=== PATIENT | female | born 1990 | race Caucasian/White ===

== ENCOUNTER 2021-06-11 07:40 | Outpatient (REF) | payer OTHER, SELFPAY ==
[2021-06-11 08:29] LABS: MANUAL DIFF FLAG NO
[2021-06-11 08:35] LABS: Basophils Absolute Auto 0.1 X10*3/uL (0.0-0.2); Basophils Percent Auto 1.1 % (0-2); Eosinophils Absolute Auto 0.6 X10*3/uL (0.0-0.4); Eosinophils Percent Auto 10.8 % (0-4); Hematocrit 43.7 % (37-47); Hemoglobin 14.4 g/dl (12.0-16.0); Imm Gran Abs Auto 0.01 X10*3/uL (0.00-0.03); Imm Gran Pct Auto 0.2 % (0.0-0.4); Lymphocytes Absolute Auto 2.1 X10*3/uL (1.2-4.9); Lymphocytes Percent Auto 38.8 % (20-40); Mean Corpuscular Hemoglobin 30.1 pg (27.0-33.0); Mean Corpuscular Volume 91.2 fL (80-98); Monocytes Absolute Auto 0.4 X10*3/uL (0.1-1.2); Monocytes Percent Auto 7.9 % (2-11); Neutrophils Absolute Auto 2.2 X10*3/uL (2.0-8.3); Neutrophils Percent Auto 41.2 % (45-73); Platelet Count 228 X10*3/uL (160-400); Red Blood Count 4.79 X10*6/uL (4.20-5.50); Red Cell Distribution Width 12.8 % (11.0-16.0); White Blood Count 5.4 X10*3/uL (4.8-10.8)
[2021-06-11 08:53] LABS: Alanine Aminotransferase 19 U/L (0-31); Albumin Level 4.8 g/dL (3.5-5.0); Alkaline Phosphatase 53 U/L (39-117); Anion Gap 13 (12-20); Aspartate Amino Transferase 18 U/L (5-31); Bilirubin Total 0.8 mg/dL (0.0-1.0); Blood Urea Nitrogen 13 mg/dL (9-16); Calcium 9.5 mg/dL (8.4-10.2); Carbon Dioxide 26 mmol/L (22-29); Chloride 106 mmol/L (96-108); Cholesterol 182 mg/dL; Estimated Glomerular Filt Rate > 60; Glucose Fasting 95 mg/dL (60-99); HDL Cholesterol 63 mg/dL; LDL Cholesterol Calculated 110 mg/dl; Potassium 4.5 mmol/L (3.3-5.1); Sodium 140 mmol/L (135-145); Total Protein 7.6 g/dL (6.5-8.0); Triglycerides 46 mg/dL
[2021-06-11 09:06] LABS: Glucose Urine UA NEG (NEG); Leukocyte Esterase Urine NEG (NEG); Nitrite Urine NEG (NEG); Specific Gravity - Urine 1.015 (1.005-1.025); Urine Blood NEG (NEG); Urine Ketones NEG (NEG); Urine Protein NEG (NEG-TRACE)
[2021-06-11 09:08] LABS: Appearance Urine CLEAR; Color Urine YELLOW
[2021-06-11 09:19] LABS: TSH reflex Free T4 0.81 uIU/mL (0.32-4.0)
== END 2021-06-11 07:41 | disposition home or self-care (01) ==
LOC: HO.LAB 07:40
PROVIDERS: PCP Internal Medicine; Visit Provider Internal Medicine
DX: Z00.00 Encounter for general adult medical examination without abnormal findings (principal); I10 Essential (primary) hypertension
CPT/HCPCS: 36415; 80053; 80061; 81003; 84443; 85025

== ENCOUNTER 2023-03-17 08:32 | Outpatient (REF) | payer OTHER, SELFPAY ==
[2023-03-17 08:46] LABS: MANUAL DIFF FLAG NO
[2023-03-17 09:23] LABS: Basophils Absolute Auto 0.1 X10*3/uL (0.0-0.2); Basophils Percent Auto 0.8 % (0-2); Eosinophils Absolute Auto 0.5 X10*3/uL (0.0-0.4); Eosinophils Percent Auto 7.4 % (0-4); Hematocrit 40.1 % (37.0-47.0); Hemoglobin 13.4 g/dl (12.0-16.0); Imm Gran Abs Auto 0.02 X10*3/uL (0.00-0.03); Imm Gran Pct Auto 0.3 % (0.0-0.4); Lymphocytes Absolute Auto 1.8 X10*3/uL (1.2-4.9); Mean Corpuscular HGB Conc 33.4 g/dl (31.0-35.0); Mean Corpuscular Hemoglobin 30.5 pg (27.0-33.0); Mean Corpuscular Volume 91.1 fL (80.0-98.0); Monocytes Absolute Auto 0.6 X10*3/uL (0.1-1.2); Monocytes Percent Auto 7.6 % (2-11); Neutrophils Absolute Auto 4.3 x10*3/uL (2.0-8.3); Neutrophils Percent Auto 58.9 % (45-73); Platelet Count 218 X10*3/uL (160-400); Red Cell Distribution Width 12.5 % (11.0-16.0); White Blood Count 7.2 X10*3/uL (4.8-10.8)
[2023-03-17 09:52] LABS: Alanine Aminotransferase 35 U/L (0-31); Albumin Level 4.5 g/dL (3.5-5.0); Alkaline Phosphatase 51 U/L (39-117); Anion Gap 11 (12-20); Aspartate Amino Transferase 50 U/L (5-31); Bilirubin Total 1.1 mg/dL (0.0-1.0); Blood Urea Nitrogen 14 mg/dL (9-16); Calcium 9.3 mg/dL (8.4-10.2); Carbon Dioxide 29 mmol/L (22-29); Chloride 102 mmol/L (96-108); Cholesterol 161 mg/dL; Estimated Glomerular Filt Rate > 60; Glucose Fasting 89 mg/dL (60-99); HDL Cholesterol 60 mg/dL; LDL Cholesterol Calculated 92 mg/dl; Potassium 4.4 mmol/L (3.3-5.1); Sodium 138 mmol/L (135-145); Total Protein 7.2 g/dL (6.5-8.0); Triglycerides 46 mg/dL
[2023-03-17 10:08] LABS: TSH reflex Free T4 0.98 uIU/mL (0.32-4.0); Vitamin D 25-OH Total 38.7 ng/mL (>30)
[2023-03-17 10:44] LABS: Appearance Urine Clear; Color Urine Yellow; Glucose Urine UA Negative (Negative); Leukocyte Esterase Urine Negative (Negative); Nitrite Urine Negative (Negative); PH 7.5 (5.0-9.0); Urine Blood Negative (Negative); Urine Ketones Negative (Negative); Urine Protein Negative (Neg-Trace)
== END 2023-03-17 08:33 | disposition home or self-care (01) ==
LOC: HO.LAB 08:32
PROVIDERS: PCP Internal Medicine; Visit Provider Internal Medicine
DX: Z00.00 Encounter for general adult medical examination without abnormal findings (principal); I10 Essential (primary) hypertension; E55.9 Vitamin D deficiency, unspecified; E78.00 Pure hypercholesterolemia, unspecified
CPT/HCPCS: 36415; 80053; 80061; 81003; 82306; 84443; 85025

== ENCOUNTER 2023-05-18 08:43 | Outpatient (AMB) | payer OTHER, SELFPAY ==
[2023-05-18 08:44] VITALS: BP 110/72; PULSE 70; TEMP 36.8; O2SAT 99
--- NOTE | 2023-05-18 08:44 | AM.OFFWIN_ITS ---
Intake Vital Signs 05/18/23 08:44 Height 5 ft 4 in BP 110/72 Blood Pressure Location Rt brachial Position Sitting Pulse 70 Pulse Source Pulse Oximeter Temp 98.3 F Temp Source Oral Pulse Oximetry (%) 99 Oxygen Delivery Method Room Air Intake Visit Reasons: EP, Tic bite left leg (lobby) Intake Note: pt is for a bulls eye rash on her left calf that is red and swollen pt did not find a tick she had orig thought it was a bug bite and this am she noticed the bulls eye Patient Tobacco Use Status: Never used Tobacco Allergies chlorhexidine Adverse Reaction (Intermediate, Verified 05/18/23 08:47) itchy rash HPI EP, Tic bite left leg (lobby) HPI Details 32-year-old patient presents today for a bulls eye rash on her left calf. She felt what she thought to be an insect bite yesterday and overnight, the area became red and warm, with a bulls eye rash surrounding it. She has had ticks on her previously after being out in her yard. She does not see any tick in area at this time. [facility] Medical History Benign essential hypertension History of pre-eclampsia Surgical History History of bunionectomy of both great toes History of wisdom tooth extraction Family History Mother High blood pressure Father High blood pressure Heart disease Mental health disorder Bipolar 1 disorder, depressed Social History Housing: House (rented) Alcohol intake: current Alcohol intake frequency: holidays/special occasions only Patient Tobacco Use Status: Never used Tobacco e-Cigarette/Vaping Use: Never Used Second Hand Smoke Exposure: Yes service: No Current occupational status: employed Current occupation: RN at [employer] Cognitive needs: No Hearing needs: No Vision needs: No Review of Systems Const All systems reviewed & are unremarkable except as noted in HPI and below Physical Exam Vital Signs: Last Vital Signs Temp 98.3 F 05/18/23 08:44 Pulse 70 05/18/23 08:44 BP 110/72 05/18/23 08:44 Pulse Ox 99 05/18/23 08:44 Oxygen Delivery Method Room Air 05/18/23 08:44 Const General: cooperative, healthy appearing, comfortable and no acute distress Resp Effort & Inspection: normal respiratory effort and able to speak in complete sentences Skin Other: erythematous, round, warm, indurated area - approx 3cm, on post. left calf. Bullseye rash surrounding site. Extrem General: Yes no clubbing, cyanosis or edema Psych Appearance: grossly normal Mental Status: mental status grossly normal Speech and movement: Normal speech and movement present Assessment & Plan Assessment & Plan (1) Insect bite of left lower leg: Code(s): S80.862A - Insect bite (nonvenomous), left lower leg, initial encounter; W57.XXXA - Bitten or stung by nonvenomous insect and other nonvenomous arthropods, initial encounter Qualifiers: Encounter type: initial encounter Qualified Code(s): S80.862A - Insect bite (nonvenomous), left lower leg, initial encounter; W57.XXXA - Bitten or stung by nonvenomous insect and other nonvenomous arthropods, initial encounter Plan: Patient with symptoms consistent with tick bite, with development of bulls eye rash overnight. Patient requesting proph abx. Denies chance of . Will prescribe Doxy 200mg as a once time dose. I will also order Lyme labs for 6 weeks from now. Advised patient to apply cool compress and topical antihistamine to bite site. If this rash worsens, or if she develops any additional symptoms she should return to the clinic for further evaluation. Orders: Orders Lyme IgG/IgM w/reflex to WB 06/29/23 S80.862A - Insect bite (nonvenomous), left lower leg, initial encounter, W57.XXXA - Bitten or stung by nonvenomous insect and other nonvenomous arthropods, initial encounter Medications: New doxycycline hyclate 200 mg (2 x 100 mg) PO ONCE 2 tabs 0RF S80.862A - Insect bite (nonvenomous), left lower leg, initial encounter, W57.XXXA - Bitten or stung by nonvenomous insect and other nonvenomous arthropods, initial encounter Coding Level of Care Code Est Pt Level 3 (98585) Diagnoses Insect bite of left lower leg S80.862A; W57.XXXA Encounter type: initial encounter
== END 2023-05-18 09:56 | disposition home or self-care (01) ==
PROVIDERS: PCP Internal Medicine; Visit Provider Nurse Practitioner Family
DX: S80.862A Insect bite (nonvenomous), left lower leg, initial encounter (principal); W57.XXXA Bitten or stung by nonvenomous insect and other nonvenomous arthropods, initial encounter
CPT/HCPCS: 99213

== ENCOUNTER 2023-06-24 13:43 | Outpatient (AMB) | payer OTHER, SELFPAY ==
--- NOTE | 2023-06-24 13:46 | MHC.PC.OV ---
Vital Signs 06/24/23 13:47 Height 5 ft 4 in Weight 137 lb 4 oz BMI 23.6 BP 122/78 Blood Pressure Location Lt brachial Position Sitting Pulse 65 Pulse Source Pulse Oximeter Pulse Oximetry (%) 99 Oxygen Delivery Method Room Air Intake Visit Reasons: Annual Exam Home Health Physical Therapist Required: No Accompanied by: Self / Same As Patient Allergies chlorhexidine Adverse Reaction (Intermediate, Verified 06/26/23 21:47) itchy rash Medication List - Last Reconciled 06/26/23 by Deric Cui MD lisinopril 2.5 mg PO DAILY 90 days metoprolol succinate ER 25 mg PO DAILY 90 days multivitamin (Daily Multi-Vitamin tablet) 1 tab PO DAILY norethindrone (contraceptive) 0.35 mg PO BEDTIME Tobacco use date assessed: 06/24/23 Dental Screening Dental Screen Date: 06/24/23 Did you have a dental visit in the last 12 months?: Yes Did you have a dental problem in the last 6 months where you did not have access to dental care?: No Was dental information given to patient?: Patient has dentist HPI Annual Exam HPI Details Patient comes in today for her annual physical examination States that she feels okay She denies any headaches but reports that she has been experiencing on and off dizziness lately, especially when she bends over and gets up too quickly Denies any chest pains, no shortness of breath No nausea /vomiting, no abdominal pain No change in bowel habits noted Denies any acute urinary symptoms Would like to know how she did on her labs done back in February 2023 [facility] Medical History Benign essential hypertension History of pre-eclampsia Surgical History History of bunionectomy of both great toes History of wisdom tooth extraction Family History Mother High blood pressure Father High blood pressure Heart disease Mental health disorder Bipolar 1 disorder, depressed Social History Housing: House (rented) Alcohol intake: current Alcohol intake frequency: holidays/special occasions only Patient Tobacco Use Status: Never used Tobacco e-Cigarette/Vaping Use: Never Used Second Hand Smoke Exposure: Yes service: No Current occupational status: employed Current occupation: RN at [employer] Cognitive needs: No Hearing needs: No Vision needs: No Questionnaire PHQ-9 Over the last 2 weeks, how often have you been bothered by any of the following problems? 1. Little interest or pleasure in doing things: not at all 2. Feeling down, depressed, or hopeless: not at all 3. Trouble falling or staying asleep, or sleeping too much: not at all 4. Feeling tired or having little energy: not at all 5. Poor appetite or overeating: not at all 6. Feeling bad about yourself - or that you are a failure or have let yourself or your family down: not at all 7. Trouble concentrating on things, such as reading the newspaper or watching television: not at all 8. Moving or speaking so slowly that other people could have noticed. Or the opposite - being so fidgety or restless that you have been moving around a lot more than usual: not at all 9. Thoughts that you would be better off or of hurting yourself in some way: not at all Total score: 0 Depression Screening Interpretation: Negative 34787 - PHQ-9 Billing: Yes Source: Developed by Drs. Edinson Mcclure, Shakira Monroe, Boby Subramanian and colleagues, with an educational frida from [employer]. Thrive Questionnaire Date Thrive assessed: 06/24/23 I am a: Patient What is your living situation today?: I have a steady place to live Within the past 12 months, did the food you bought not last and you didn't have the money to get more?: Never true Within the past 12 months, did you worry whether your food would run out before you got money to buy more?: Never true Do you have trouble paying for medicines?: No Do you have trouble getting transportation to medical appointments?: No Do you have trouble paying your heating and electricity bill?: No Do you have trouble taking care of your child, family member or friend?: No Do you have trouble with day-to-day activities such as bathing, preparing meals, shopping, managing finances, etc.?: No Are you currently unemployed and looking for a job?: No Are you interested in more education?: No Please select the resources that you would like help with: None Currently or been in a relationship where the following occur: no concerns reported AUDIT C Alcohol Use Questionnaire (AUDIT-C) 1. How often do you have a drink containing alcohol?: Monthly or less 2. How many drinks containing alcohol do you have on a typical day when you are drinking?: 1 or 2 3. How often do you have six or more drinks on one occasion?: Never Total Score: 1 Score Reviewed/Action Taken: Yes GWENDOLYN-7 AMB Questionnaire GWENDOLYN-7 Date GWENDOLYN - 7 assessed: 06/24/23 Feeling nervous, anxious, or on edge: 0 = Not at all Not being able to stop or control worryin = Not at all Worrying too much about different things: 0 = Not at all Trouble relaxin = Not at all Being so restless that it is hard to sit still: 0 = Not at all Becoming easily annoyed or irritable: 0 = Not at all Feeling afraid as if something awful might happen: 0 = Not at all Total GWENDOLYN-7 score (0-4 normal; 5-9 mild; 10-14 moderate; 15-21 severe): 0 Source: Developed by Drs. Edinson Mcclure, Shakira Monroe, Boby Subramanian and colleagues, with an educational frida from [employer]. GWENDOLYN-7 Assessment Billing GWENDOLYN-7 Assessment Tool: GWENDOLYN-7 Assessment 13235 Review of Systems Const Denies chills, Denies fatigue, Denies fever(s), Denies headache(s) and Denies malaise Eyes Denies blurry vision, Denies change in vision, Denies irritation and Denies itchy eyes ENT Denies dysphagia, Denies dizziness, Denies otalgia, Denies headache(s), Denies nasal congestion, Denies neck pain, Denies odynophagia, Denies sinus pain and Denies sore throat Card Denies chest pain, Denies rapid heart rate, Denies irregular heart rhythm, Denies palpitations and Denies dyspnea Resp Denies chest congestion, Denies cough, Denies dyspnea and Denies wheezing GI Denies abdominal pain, Denies bloating, Denies constipation, Denies dysphagia, Denies heartburn, Denies diarrhea, Denies nausea, Denies odynophagia and Denies vomiting Denies hematuria, Denies urinary frequency, Denies dysuria, Denies urinary incontinence and Denies urinary urgency Musc Denies back pain, Denies arthralgias, Denies joint swelling, Denies muscle weakness and Denies neck pain Skin/Breast Denies breast pain, Denies breast mass, Denies change in pigmentation, Denies lesions, Denies rash and Denies unusual bruising Neuro Denies dizziness, Denies headache(s) and Denies paresthesias Psych Denies anxiety and Denies depression Endo Denies fatigue and Denies palpitations Nickolas/Lymph Denies easy bruising Aller/Immun Denies itchy eyes and Denies wheezing Physical exam (Primary Care) Vital Signs: Last Vital Signs Pulse 65 06/24/23 13:47 BP 122/78 06/24/23 13:47 Pulse Ox 99 06/24/23 13:47 Oxygen Delivery Method Room Air 06/24/23 13:47 BMI result Body Mass Index 23.6 Tobacco/Smoking Status: Tobacco use Status Tobacco use date assessed 06/24/23 06/24/23 13:53 Patient Tobacco Use Status Never used Tobacco 06/24/23 13:53 e-Cigarette/Vaping Use Never Used 06/24/23 13:53 PHQ-9: PHQ-9 Score PHQ-9: Total score 0 06/26/23 21:57 Depression Screening Interpretation: Negative Thrive Assessment: Date of Thrive Assessment Date Thrive assessed 06/24/23 06/24/23 13:53 Currently or been in a relationship where the following occur: no concerns reported Const General: no acute distress, alert and awake Orientation/consciousness: patient oriented x3 [facility] Head: Yes normocephalic and Yes atraumatic Ears: external ears normal, TM's normal bilaterally and EAC's normal General nose exam: No nasal discharge present Face and sinus: Yes normal facial exam and Yes sinuses nontender Teeth and gingiva: dentition normal Throat: Yes posterior oropharynx normal and Yes tonsils normal (no TP congestion) Eyes Eyelids: Yes eyelids normal Conjunctivae: conjunctivae normal Pupils: Equal, round and reactive pupils present EOM: EOMs intact bilaterally Neck Neck: Yes no lymphadenopathy and Yes supple Thyroid: Thyroid normal Resp Auscultation: clear to auscultation bilaterally, no rales and no wheezes Cardio Rate: regular rate Rhythm: regular rhythm Heart sounds: no murmurs GI Palpation (GI): Soft to palpation, nontender and No hepatosplenomegaly present Auscultation: normal bowel sounds General: Yes no CVA tenderness Back/Spine/Pelvis Back: no CVA tenderness Thoracic/Lumbar Spine: thoracic and lumbar spine normal to inspection Skin Lesions: no lesions Rashes: no rashes Neuro General: patient oriented x3, moves all extremities, no focal motor deficits and CN's II-XI intact bilaterally Cranial nerves: Yes Equal, round and reactive pupils present Cognition (Neuro): normal cognition Gait exam (Neuro): Normal gait present Extrem General: Yes no clubbing, cyanosis or edema Results Reviewed Results Reviewed: Laboratory Tests 03/17/23 03/17/23 03/17/23 08:30 08:45 08:45 WBC 7.2 Hgb 13.4 Hct 40.1 Plt Count 218 Sodium 138 Potassium 4.4 Creatinine 0.79 Estimated GFR > 60 Fasting Glucose 89 Total Bilirubin 1.1 H AST 50 H ALT 35 H Triglycerides 46 Cholesterol 161 LDL Cholesterol, Calc 92 HDL Cholesterol 60 25-OH Vitamin D Total 38.7 TSH 0.98 Ur Specific [place] 1.010 Urine Protein Negative Urine Glucose (UA) Negative Urine Blood Negative Assessment and Plan Assessment & Plan (1) Annual physical exam: Code(s): Z00.00 - Encounter for general adult medical examination without abnormal findings Plan: Results of her labs done in February 2023 reviewed and discussed with patient (2) Benign essential hypertension: Code(s): I10 - Essential (primary) hypertension Plan: Reinforced low sodium diet - goal is systolic BP of 120 to 130 mm or less; patient's BP is currently well-controlled Continue Metoprolol ER 25 mg QD Is also on Lisinopril 5 mg QD but will have her try cutting her Lisinopril in half to 2.5 mg QD for now to see if this will keep her from getting the recurrent dizzy spells that she was experiencing recently She is advised to continue monitoring her blood pressure regularly (3) Elevated LFTs: Code(s): R79.89 - Other specified abnormal findings of blood chemistry Plan: Advised that her LFTs were elevated on her labs done back in February 2023 Patient denies any abdominal pain or symptoms lately States that she drinks only occasionally / rarely and does not take any Tylenol or any other meds that can affect the liver Will send her for a repeat liver panel for follow up Advised that if her LFTs remain elevated, will then send her for abdominal US for further evaluation (4) Eosinophilia: Code(s): D72.10 - Eosinophilia, unspecified Qualifiers: Eosinophilia type: unspecified eosinophilia Qualified Code(s): D72.10 - Eosinophilia, unspecified Plan: She's had an unexplained eosinophilia for a while now and her eosinophil level remains elevated on her recent labs Will refer her to hematology for further evaluation and management (5) Varicose vein of leg: Code(s): I83.90 - Asymptomatic varicose veins of unspecified lower extremity Qualifiers: Laterality: bilateral Varicose vein complication: asymptomatic Qualified Code(s): I83.93 - Asymptomatic varicose veins of bilateral lower extremities Plan: She is now seeing vascular surgery (Dr. Pichardo) in [place] Was reportedly advised at her last visit that as she currently does not appear to have any significant symptoms related to her varicose veins, insurance will often NOT cover cosmetic procedures so surgery would not be an option for her at this time Plan Follow up in 6 months Orders: Orders Liver Panel 06/24/23 R79.89 - Other specified abnormal findings of blood chemistry Referrals Hematology & Oncology Referral D72.10 - Eosinophilia, unspecified Medications: Changed From lisinopril 5 mg PO DAILY 90 days 90 tabs 3RF To lisinopril 2.5 mg PO DAILY 90 days 90 tabs 3RF Coding Level of Care Code Est Pt Prev Care 18-39y([id number]) Diagnoses Annual physical exam Z00.00 Benign essential hypertension I10 Elevated LFTs R79.89 Eosinophilia D72.10 Eosinophilia type: unspecified eosinophilia Varicose vein of leg I83.93 Laterality: bilateral Varicose vein complication: asymptomatic Additional Codes GWENDOLYN-7 Assessment Billing - GWENDOLYN-7 Assessment Tool: GWENDOLYN-7 Assessment [id number] ([id number])
[2023-06-24 13:47] VITALS: BP 122/78; PULSE 65; O2SAT 99; BMI 23.6
== END 2023-06-24 14:34 | disposition home or self-care (01) ==
PROVIDERS: PCP Internal Medicine; Visit Provider Internal Medicine
DX: Z00.00 Encounter for general adult medical examination without abnormal findings (principal); I10 Essential (primary) hypertension; R79.89 Other specified abnormal findings of blood chemistry; D72.10 Eosinophilia, unspecified; I83.93 Asymptomatic varicose veins of bilateral lower extremities
CPT/HCPCS: 99395

== ENCOUNTER 2023-06-30 14:02 | Outpatient (REF) | payer OTHER, SELFPAY ==
[2023-06-30 16:07] LABS: Alanine Aminotransferase 16 U/L (0-31); Albumin Level 4.9 g/dL (3.5-5.0); Alkaline Phosphatase 61 U/L (39-117); Aspartate Amino Transferase 21 U/L (5-31); Bilirubin Direct 0.3 mg/dL (0.0-0.5); Bilirubin Total 0.7 mg/dL (0.0-1.0); Total Protein 8.3 g/dL (6.5-8.0)
[2023-07-02 05:19] LABS: Lyme Blot 7.97 index
[2023-07-04 11:30] LABS: Lyme Abs Screen POSITIVE
[2023-07-06 14:18] LABS: 18 KD (IgG) Band NON-REACTIVE; 23 KD (IgG) Band REACTIVE; 23 KD (IgM) Band REACTIVE; 28 KD (IgG) Band NON-REACTIVE; 30 KD (IgG) Band NON-REACTIVE; 39 KD (IgM) Band NON-REACTIVE; 39KD (IgG) Band REACTIVE; 41 KD (IgM) Band REACTIVE; 41KD (IgG) Band REACTIVE; 45 KD (IgG) Band NON-REACTIVE; 58 KD (IgG) Band REACTIVE; 66 KD (IgG) Band NON-REACTIVE; 93 KD (IgG) Band NON-REACTIVE; Lyme IgG Blot Interp NEGATIVE (NEGATIVE); Lyme IgM Blot Interp POSITIVE (NEGATIVE)
== END 2023-06-30 14:03 | disposition home or self-care (01) ==
LOC: HO.LAB 14:02
PROVIDERS: Absent Provider Internal Medicine; PCP Internal Medicine; Visit Provider Nurse Practitioner Family
DX: R79.89 Other specified abnormal findings of blood chemistry (principal); S80.862A Insect bite (nonvenomous), left lower leg, initial encounter; W57.XXXA Bitten or stung by nonvenomous insect and other nonvenomous arthropods, initial encounter
CPT/HCPCS: 36415; 80076; 86617; 86618

== ENCOUNTER → 2023-08-09 10:43 | Outpatient (BNV) | payer OTHER, SELFPAY | PROVIDERS: PCP Internal Medicine; Visit Provider Internal Medicine | DX: D72.10 Eosinophilia, unspecified (principal) | CPT/HCPCS: 99203 ==

== ENCOUNTER 2023-12-26 09:52 | Outpatient (AMB) | payer OTHER, SELFPAY ==
--- NOTE | 2023-12-26 09:55 | MHC.PC.OV ---
Vital Signs 12/26/23 09:58 Height 5 ft 3 in Weight 142 lb 4 oz BMI 25.2 BP 120/78 Blood Pressure Location Lt brachial Position Sitting Pulse 79 Pulse Source Pulse Oximeter Pulse Oximetry (%) 95 Oxygen Delivery Method Room Air Intake Visit Reasons: HTN, eosinophilia, elevated LFTs Intake Note: Patient is here to follow up on HTN, Esoinophilia, Elevated LFTs. Bottle Inspector Required: No Hairmasters Manager: Present Accompanied by: Child Allergies Seasonal Allergies Allergy (Verified 12/26/23 10:22) Runny Nose chlorhexidine Adverse Reaction (Intermediate, Verified 12/26/23 10:22) itchy rash Medication List - Last Reconciled 12/26/23 by Deric Cui MD lisinopril 5 mg PO DAILY metoprolol succinate ER 25 mg PO DAILY 90 days multivitamin (Daily Multi-Vitamin tablet) 1 tab PO DAILY Tobacco use date assessed: 12/26/23 Dental Screening Dental Screen Date: 12/26/23 Did you have a dental visit in the last 12 months?: Yes Did you have a dental problem in the last 6 months where you did not have access to dental care?: No Was dental information given to patient?: Patient has dentist HPI HTN, eosinophilia, elevated LFTs HPI Details Patient comes in today for her follow up visit States that she feels okay She denies any headaches or dizziness Denies any chest pains, no SOB No nausea/vomiting, no abdominal pain No change in bowel habits noted States that she went back up on her Lisinopril to 5 mg QD when she noticed her BP going up consistently when her dose was lowered to 2.5 mg QD a few months ago - will need a new Rx for her 5 mg Lisinopril Was seen by hematology for her chronic eosinophilia a few months ago - work ups were all negative and she was advised that this is likely allergy-mediated and she just needs to follow up with hematology on an as-needed basis [facility] Medical History Eosinophilia Benign essential hypertension History of pre-eclampsia Surgical History History of wisdom tooth extraction History of bunionectomy of both great toes Family History Mother High blood pressure Father High blood pressure Heart disease Mental health disorder Bipolar 1 disorder, depressed Social History Household Members: Spouse and Children Housing: House (rented) Alcohol intake: current Alcohol intake frequency: holidays/special occasions only Patient Tobacco Use Status: Never used Tobacco e-Cigarette/Vaping Use: Never Used Second Hand Smoke Exposure: Yes service: No Current occupational status: employed Current occupation: RN at [employer] Cognitive needs: No Hearing needs: No Vision needs: No Questionnaire PHQ-9 Over the last 2 weeks, how often have you been bothered by any of the following problems? 1. Little interest or pleasure in doing things: not at all 2. Feeling down, depressed, or hopeless: not at all 3. Trouble falling or staying asleep, or sleeping too much: not at all 4. Feeling tired or having little energy: not at all 5. Poor appetite or overeating: not at all 6. Feeling bad about yourself - or that you are a failure or have let yourself or your family down: not at all 7. Trouble concentrating on things, such as reading the newspaper or watching television: not at all 8. Moving or speaking so slowly that other people could have noticed. Or the opposite - being so fidgety or restless that you have been moving around a lot more than usual: not at all 9. Thoughts that you would be better off or of hurting yourself in some way: not at all Total score: 0 Depression Screening Interpretation: Negative Depression Screening Done: Yes 56805 - PHQ-9 Billing: Yes Source: Developed by Drs. Edinson Mcclure, Shakira Monroe, Boby Subramanian and colleagues, with an educational frida from [employer]. Thrive Questionnaire Date Thrive assessed: 12/26/23 I am a: Patient What is your living situation today?: I have a steady place to live Within the past 12 months, did the food you bought not last and you didn't have the money to get more?: Never true Within the past 12 months, did you worry whether your food would run out before you got money to buy more?: Never true Do you have trouble paying for medicines?: No Do you have trouble getting transportation to medical appointments?: No Do you have trouble paying your heating and electricity bill?: No Do you have trouble taking care of your child, family member or friend?: No Do you have trouble with day-to-day activities such as bathing, preparing meals, shopping, managing finances, etc.?: No Are you currently unemployed and looking for a job?: No Are you interested in more education?: No Currently or been in a relationship where the following occur: no concerns reported THRIVE Score: 0 AUDIT C Alcohol Use Questionnaire (AUDIT-C) 1. How often do you have a drink containing alcohol?: Monthly or less 2. How many drinks containing alcohol do you have on a typical day when you are drinking?: 1 or 2 Total Score: 1 Score Reviewed/Action Taken: Yes GWENDOLYN-7 AMB Questionnaire GWENDOLYN-7 Date GWENDOLYN - 7 assessed: 12/26/23 Feeling nervous, anxious, or on edge: 0 = Not at all Not being able to stop or control worryin = Not at all Worrying too much about different things: 0 = Not at all Trouble relaxin = Not at all Being so restless that it is hard to sit still: 0 = Not at all Becoming easily annoyed or irritable: 0 = Not at all Feeling afraid as if something awful might happen: 0 = Not at all Total GWENDOLYN-7 score (0-4 normal; 5-9 mild; 10-14 moderate; 15-21 severe): 0 Source: Developed by Drs. Edinson Mcclure, Shakira Monroe, Boby Subramanian and colleagues, with an educational frida from [employer]. Review of Systems Const Denies chills, Denies fatigue, Denies fever(s) and Denies headache(s) ENT Denies dysphagia, Denies dizziness, Denies otalgia, Denies headache(s), Denies nasal congestion, Reports nasal discharge (on and off, mostly clear), Denies neck pain, Denies odynophagia and Denies sore throat Card Denies chest pain, Denies palpitations and Denies dyspnea Resp Denies cough and Denies dyspnea GI Denies abdominal pain, Denies constipation, Denies dysphagia, Denies heartburn, Denies diarrhea, Denies nausea, Denies odynophagia and Denies vomiting Denies difficulty voiding, Denies nocturia and Denies dysuria Musc Denies back pain and Denies neck pain Skin/Breast Denies rash Neuro Denies dizziness and Denies headache(s) Endo Denies fatigue and Denies palpitations Physical exam (Primary Care) Vital Signs: Last Vital Signs Pulse 79 12/26/23 09:58 BP 120/78 12/26/23 09:58 Pulse Ox 95 12/26/23 09:58 Oxygen Delivery Method Room Air 12/26/23 09:58 BMI result Body Mass Index 25.2 Tobacco/Smoking Status: Tobacco use Status Tobacco use date assessed 12/26/23 12/26/23 10:03 Patient Tobacco Use Status Never used Tobacco 12/26/23 10:03 e-Cigarette/Vaping Use Never Used 12/26/23 10:03 PHQ-9: PHQ-9 Score PHQ-9: Total score 0 12/26/23 10:27 Depression Screening Interpretation: Negative Thrive Assessment: Date of Thrive Assessment Date Thrive assessed 12/26/23 12/26/23 10:03 Currently or been in a relationship where the following occur: no concerns reported Const General: no acute distress and alert HENMT Ears: TM's normal bilaterally and EAC's normal Throat: Yes posterior oropharynx normal and Yes tonsils normal (no TP congestion) Neck Neck: Yes no lymphadenopathy and Yes supple Thyroid: Thyroid normal Resp Auscultation: clear to auscultation bilaterally, no rales and no wheezes Cardio Rate: regular rate Rhythm: regular rhythm Heart sounds: no murmurs GI Palpation (GI): Soft to palpation and nontender Auscultation: normal bowel sounds Skin General skin exam: no rashes or lesions noted Extrem General: Yes no clubbing, cyanosis or edema Assessment and Plan Assessment & Plan (1) Benign essential hypertension: Code(s): I10 - Essential (primary) hypertension Plan: Reinforced low sodium diet - goal is systolic BP of 120 to 130 mm or less; patient's BP is currently well-controlled Continue Metoprolol ER 25 mg QD and Lisinopril 5 mg QD (Rx refilled) We tried cutting her Lisinopril in half to 2.5 mg QD a few months ago (mostly to see if this will keep her from getting the recurrent dizzy spells that she was experiencing previously) but states that she went back up to 5 mg QD when she noticed her BP staying high consistently States that she has not had any problems with her dizziness since She is reminded to continue monitoring her blood pressure regularly (2) Elevated LFTs: Code(s): R79.89 - Other specified abnormal findings of blood chemistry Plan: Her LFTs were elevated on her labs done back in February 2023 but they were back to normal on her repeat labs in May 2023 Is most likely related to her weight - patient denies any acute abdominal pain or symptoms and states that she drinks alcohol only occasionally / rarely and does not take any excessive amounts of Tylenol Rx Will continue to monitor her LFTs regularly (3) Eosinophilia: Code(s): D72.10 - Eosinophilia, unspecified Qualifiers: Eosinophilia type: unspecified eosinophilia Qualified Code(s): D72.10 - Eosinophilia, unspecified Plan: She was seen by hematology for further evaluation - work ups done were all negative Was advised that this is likely allergy-mediated and she just needs to follow up with hematology on an as-needed basis (4) Varicose vein of leg: Code(s): I83.90 - Asymptomatic varicose veins of unspecified lower extremity Qualifiers: Varicose vein complication: asymptomatic Laterality: bilateral Qualified Code(s): I83.93 - Asymptomatic varicose veins of bilateral lower extremities Plan: She is now seeing vascular surgery (Dr. Pichardo) in [place] Was reportedly advised at her last visit that as she currently does not appear to have any significant symptoms related to her varicose veins, insurance will often NOT cover cosmetic procedures so surgery would not be an option for her at this time Plan To return in 6 months for her next annual physical examination Patient is reminded to get her (follow up) labs done before she comes in for her appt. Orders: Orders Complete Blood Count Auto Diff 6 Months D72.10 - Eosinophilia, unspecified, Z00.00 - Encounter for general adult medical examination without abnormal findings Lipid Panel 6 Months E78.00 - Pure hypercholesterolemia, unspecified, Z00.00 - Encounter for general adult medical examination without abnormal findings Comprehensive [place]. Panel Fast 6 Months E78.00 - Pure hypercholesterolemia, unspecified, Z00.00 - Encounter for general adult medical examination without abnormal findings TSH reflex Free T4 6 Months E78.00 - Pure hypercholesterolemia, unspecified, Z00.00 - Encounter for general adult medical examination without abnormal findings UA CC w/rflx Micro + Cult 6 Months R30.0 - Dysuria, Z00.00 - Encounter for general adult medical examination without abnormal findings Vitamin D 25-OH Total 6 Months E55.9 - Vitamin D deficiency, unspecified, Z00.00 - Encounter for general adult medical examination without abnormal findings Medications: New lisinopril 5 mg PO DAILY 90 days 90 tabs 3RF Coding Level of Care Code Est Pt Level 4 (61859) Diagnoses Benign essential hypertension I10 Elevated LFTs R79.89 Eosinophilia, unspecified type D72.10 Eosinophilia type: unspecified eosinophilia Asymptomatic varicose veins of both lower extremities I83.93 Varicose vein complication: asymptomatic Laterality: bilateral
[2023-12-26 09:58] VITALS: BP 120/78; PULSE 79; O2SAT 95; BMI 25.2
== END 2023-12-26 10:29 | disposition home or self-care (01) ==
PROVIDERS: PCP Internal Medicine; Visit Provider Internal Medicine
DX: I10 Essential (primary) hypertension (principal); R79.89 Other specified abnormal findings of blood chemistry; D72.10 Eosinophilia, unspecified; I83.93 Asymptomatic varicose veins of bilateral lower extremities
CPT/HCPCS: 99214

== ENCOUNTER 2024-08-10 16:59 | Outpatient (AMB) | payer OTHER, SELFPAY ==
[2024-08-10 17:01] VITALS: BP 112/64; PULSE 67; O2SAT 99; BMI 26.1
--- NOTE | 2024-08-10 17:01 | A.OFFPC_ITS ---
Vital Signs 08/10/24 17:01 Height 5 ft 3 in Weight 147 lb 4 oz BMI 26.1 BP 112/64 Blood Pressure Location Lt brachial Position Sitting Pulse 67 Pulse Source Pulse Oximeter Pulse Oximetry (%) 99 Oxygen Delivery Method Room Air Intake Visit Reasons: annual Pharmaceutical Engineer Required: No Accompanied by: Self / Same As Patient Allergies Seasonal Allergies Allergy (Verified 08/10/24 18:51) Runny Nose chlorhexidine Adverse Reaction (Intermediate, Verified 08/10/24 18:51) itchy rash Medication List - Last Reconciled 08/10/24 by Deric Cui MD lisinopril 5 mg PO DAILY 90 days metoprolol succinate ER 25 mg PO DAILY 90 days multivitamin (Daily Multi-Vitamin tablet) 1 tab PO DAILY Tobacco use date assessed: 08/10/24 Dental Screening Dental Screen Date: 08/10/24 Did you have a dental visit in the last 12 months?: Yes Did you have a dental problem in the last 6 months where you did not have access to dental care?: No Was dental information given to patient?: Patient has dentist HPI annual HPI Details Patient comes in today for her annual physical examination States that she feels okay She denies any headaches or dizziness Denies any chest pains, no SOB No nausea/vomiting, no abdominal pain No change in bowel habits noted Denies any acute urinary symptoms Needs both of her BP med Rx refilled She was not able to get her follow up labs done yet States that she is up-to-date with her annual gynecology exam and pap smear - she goes to [facility] for this Adds that her son was noted to have a heart murmur and was just diagnosed with a bicuspid aortic valve and she was advised by his telemarketer that she should also have a cardiac echo done to get checked out [facility] Medical History (Updated 08/10/24 @ 18:58 by Deric Cui MD) Overweight (BMI 25.0-29.9) Eosinophilia Benign essential hypertension History of pre-eclampsia Surgical History History of wisdom tooth extraction History of bunionectomy of both great toes Family History Mother High blood pressure Father High blood pressure Heart disease Mental health disorder Bipolar 1 disorder, depressed Social History Household Members: Spouse and Children Housing: House (rented) Alcohol intake: current Alcohol intake frequency: holidays/special occasions only Patient Tobacco Use Status: Never used Tobacco e-Cigarette/Vaping Use: Never Used Second Hand Smoke Exposure: Yes service: No Current occupational status: employed Current occupation: RN at [employer] Cognitive needs: No Hearing needs: No Vision needs: No Questionnaire PHQ-9 Over the last 2 weeks, how often have you been bothered by any of the following problems? 1. Little interest or pleasure in doing things: not at all 2. Feeling down, depressed, or hopeless: not at all 3. Trouble falling or staying asleep, or sleeping too much: not at all 4. Feeling tired or having little energy: not at all 5. Poor appetite or overeating: not at all 6. Feeling bad about yourself - or that you are a failure or have let yourself or your family down: not at all 7. Trouble concentrating on things, such as reading the newspaper or watching television: not at all 8. Moving or speaking so slowly that other people could have noticed. Or the opposite - being so fidgety or restless that you have been moving around a lot more than usual: not at all 9. Thoughts that you would be better off or of hurting yourself in some way: not at all Total score: 0 Depression Screening Interpretation: Negative Depression Screening Done: Yes 29460 - PHQ-9 Billing: Yes Source: Developed by Drs. Edinson Mcclure, Shakira Monroe, Boby Subramanian and colleagues, with an educational frida from [employer] and some sugar. Thrive Questionnaire Date Thrive assessed: 08/10/24 I am a: Patient What is your living situation today?: I have a steady place to live Within the past 12 months, did the food you bought not last and you didn't have the money to get more?: Never true Within the past 12 months, did you worry whether your food would run out before you got money to buy more?: Never true Do you have trouble paying for medicines?: No Do you have trouble getting transportation to medical appointments?: No Do you have trouble paying your heating and electricity bill?: No Do you have trouble taking care of your child, family member or friend?: No Do you have trouble with day-to-day activities such as bathing, preparing meals, shopping, managing finances, etc.?: No Are you currently unemployed and looking for a job?: No Are you interested in more education?: No Please select the resources that you would like help with: None Currently or been in a relationship where the following occur: No concerns reported THRIVE Score: 0 AUDIT C Alcohol Use Questionnaire (AUDIT-C) 1. How often do you have a drink containing alcohol?: Monthly or less 2. How many drinks containing alcohol do you have on a typical day when you are drinking?: 1 or 2 3. How often do you have six or more drinks on one occasion?: Never Total Score: 1 Score Reviewed/Action Taken: Yes GWENDOLYN-7 AMB Questionnaire GWENDOLYN-7 Date GWENDOLYN - 7 assessed: 08/10/24 Feeling nervous, anxious, or on edge: 0 = Not at all Not being able to stop or control worryin = Not at all Worrying too much about different things: 0 = Not at all Trouble relaxin = Not at all Being so restless that it is hard to sit still: 0 = Not at all Becoming easily annoyed or irritable: 0 = Not at all Feeling afraid as if something awful might happen: 0 = Not at all Total GWENDOLYN-7 score (0-4 normal; 5-9 mild; 10-14 moderate; 15-21 severe): 0 Source: Developed by Drs. Edinson Mcclure, Shakira Monroe, Boby Subramanian and colleagues, with an educational frida from [employer] and some sugar. Review of Systems Const Denies chills, Denies fatigue, Denies fever(s), Denies headache(s) and Denies malaise Eyes Denies blurry vision, Denies change in vision, Denies irritation and Denies itchy eyes ENT Denies dysphagia, Denies dizziness, Denies otalgia, Denies headache(s), Denies nasal congestion, Denies neck pain, Denies odynophagia, Denies sinus pain and Denies sore throat Card Denies chest pain, Denies rapid heart rate, Denies irregular heart rhythm, Denies palpitations and Denies dyspnea Resp Denies chest congestion, Denies cough, Denies dyspnea and Denies wheezing GI Denies abdominal pain, Denies bloating, Denies constipation, Denies dysphagia, Denies heartburn, Denies diarrhea, Denies nausea, Denies odynophagia and Denies vomiting Denies hematuria, Denies urinary frequency, Denies dysuria, Denies urinary incontinence and Denies urinary urgency Musc Denies back pain, Denies arthralgias, Denies joint swelling, Denies muscle weakness and Denies neck pain Skin/Breast Denies breast pain, Denies breast mass, Denies change in pigmentation, Denies lesions, Denies rash and Denies unusual bruising Neuro Denies dizziness, Denies headache(s) and Denies paresthesias Psych Denies anxiety and Denies depression Endo Denies fatigue and Denies palpitations Nickolas/Lymph Denies easy bruising Aller/Immun Denies itchy eyes and Denies wheezing Physical exam (Primary Care) Vital Signs: Last Vital Signs Pulse 67 08/10/24 17:01 BP 112/64 08/10/24 17:01 Pulse Ox 99 08/10/24 17:01 Oxygen Delivery Method Room Air 08/10/24 17:01 BMI result Body Mass Index 26.1 Tobacco/Smoking Status: Tobacco use Status Tobacco use date assessed 08/10/24 08/10/24 17:06 Patient Tobacco Use Status Never used Tobacco 08/10/24 17:06 e-Cigarette/Vaping Use Never Used 08/10/24 17:06 PHQ-9: PHQ-9 Score PHQ-9: Total score 0 08/10/24 17:19 Depression Screening Interpretation: Negative Thrive Assessment: Date of Thrive Assessment Date Thrive assessed 08/10/24 08/10/24 17:06 Currently or been in a relationship where the following occur: No concerns reported Const General: no acute distress, alert and awake Orientation/consciousness: patient oriented x3 HENMT Head: Yes normocephalic and Yes atraumatic Ears: external ears normal, TM's normal bilaterally and EAC's normal General nose exam: No nasal discharge present Face and sinus: Yes normal facial exam and Yes sinuses nontender Teeth and gingiva: dentition normal Throat: Yes posterior oropharynx normal and Yes tonsils normal (no TP congestion) Eyes Eyelids: Yes eyelids normal Conjunctivae: conjunctivae normal Pupils: Equal, round and reactive pupils present EOM: EOMs intact bilaterally Neck Neck: Yes no lymphadenopathy and Yes supple Thyroid: Thyroid normal Resp Auscultation: clear to auscultation bilaterally, no rales and no wheezes Cardio Rate: regular rate Rhythm: regular rhythm Heart sounds: no murmurs GI Palpation (GI): Soft to palpation, nontender and No hepatosplenomegaly present Auscultation: normal bowel sounds General: Yes no CVA tenderness Back/Spine/Pelvis Back: no CVA tenderness Thoracic/Lumbar Spine: thoracic and lumbar spine normal to inspection Skin Lesions: no lesions Rashes: no rashes Neuro General: patient oriented x3, moves all extremities, no focal motor deficits and CN's II-XI intact bilaterally Cranial nerves: Yes Equal, round and reactive pupils present Cognition (Neuro): normal cognition Gait exam (Neuro): Normal gait present Extrem General: Yes no clubbing, cyanosis or edema Coding Level of Care Code Est Pt Prev Care 18-39y(98040) Diagnoses Annual physical exam Z00.00 Benign essential hypertension I10 Elevated LFTs R79.89 Eosinophilia, unspecified type D72.10 Eosinophilia type: unspecified eosinophilia Asymptomatic varicose veins of both lower extremities I83.93 Varicose vein complication: asymptomatic Laterality: bilateral Family history of bicuspid aortic valve Z82.79 Overweight (BMI 25.0-29.9) E66.3 Assessment & Plan Assessment & Plan (1) Annual physical exam: Code(s): Z00.00 - Encounter for general adult medical examination without abnormal findings Category: Medical Plan: Check labs - her previously ordered labs are printed out and handed to patient and she is instructed to get these done AMI She is up-to-date with her annual gynecology exam and pap smear - goes to [facility] (2) Benign essential hypertension: Code(s): I10 - Essential (primary) hypertension Category: Medical Plan: Reinforced low sodium diet - goal is systolic BP of 120 to 130 mm or less Her BP is currently well-controlled Continue Metoprolol ER 25 mg QD and Lisinopril 5 mg QD - Rx refilled (3) Elevated LFTs: Code(s): R79.89 - Other specified abnormal findings of blood chemistry Category: Medical Plan: Her LFTs were elevated on her labs done back in February 2023 but they were back to normal on her repeat labs in May 2023 This is most likely related to her weight - patient denies any acute abdominal pain or symptoms and states that she drinks alcohol only occasionally / rarely and does not take any excessive amounts of Tylenol Rx Will continue to monitor her LFTs regularly (4) Eosinophilia: Code(s): D72.10 - Eosinophilia, unspecified Category: Medical Qualifiers: Eosinophilia type: unspecified eosinophilia Qualified Code(s): D72.10 - Eosinophilia, unspecified Plan: She was referred to and seen by hematology for further evaluation - work ups done were all negative She was advised that this is likely allergy-mediated, is a benign condition and she just needs to follow up with hematology on an as-needed basis (5) Varicose vein of leg: Code(s): I83.90 - Asymptomatic varicose veins of unspecified lower extremity Category: Medical Qualifiers: Varicose vein complication: asymptomatic Laterality: bilateral Qualified Code(s): I83.93 - Asymptomatic varicose veins of bilateral lower extremities Plan: She is now seeing vascular surgery in [place] She was reportedly advised at her last visit that as she currently does not appear to have any significant symptoms related to her varicose veins, insurance will NOT cover cosmetic procedures so surgery would not be an option for her at this time (6) Family history of bicuspid aortic valve: Code(s): Z82.79 - Family history of other congenital malformations, deformations and chromosomal abnormalities Category: Medical Plan: Patient's son was recently noted to have a cardiac murmur and was diagnosed with a bicuspid aortic valve and she was supposedly advised by her son's telemarketer that she should request for an echocardiogram for further evaluation - echocardiogram ordered (7) Overweight (BMI 25.0-29.9): Code(s): E66.3 - Overweight Category: Medical Plan: Reinforced diet/exercise as tolerated/lose weight Plan Follow up in 6 months Orders: Orders CA echo transthoracic complete Today R06.09 - Other forms of dyspnea, Z82.79 - Family history of other congenital malformations, deformations and chromosomal abnormalities Medications: Refilled 2 metoprolol succinate ER 25 mg PO DAILY 90 tabs 3RF 90 days I10 - Essential (primary) hypertension lisinopril 5 mg PO DAILY 90 tabs 3RF 90 days
== END 2024-08-10 17:22 | disposition home or self-care (01) ==
PROVIDERS: PCP Internal Medicine; Visit Provider Internal Medicine
DX: Z00.00 Encounter for general adult medical examination without abnormal findings (principal); I10 Essential (primary) hypertension; R79.89 Other specified abnormal findings of blood chemistry; D72.10 Eosinophilia, unspecified; I83.93 Asymptomatic varicose veins of bilateral lower extremities; Z82.79 Family history of other congenital malformations, deformations and chromosomal abnormalities; E66.3 Overweight

== ENCOUNTER → 2024-08-10 16:59 | Outpatient (BNVA) | payer OTHER, SELFPAY | PROVIDERS: PCP Internal Medicine; Visit Provider Internal Medicine ==

== ENCOUNTER 2024-08-21 08:31 | Outpatient (REF) | payer OTHER, SELFPAY ==
[2024-08-21 08:47] LABS: MANUAL DIFF FLAG NO
[2024-08-21 08:58] LABS: Basophils Absolute Auto 0.1 X10*3/uL (0.0-0.2); Basophils Percent Auto 1.1 % (0-2); Eosinophils Absolute Auto 0.7 X10*3/uL (0.0-0.4); Hematocrit 38.1 % (37.0-47.0); Hemoglobin 12.9 g/dl (12.0-16.0); Imm Gran Abs Auto 0.02 X10*3/uL (0.00-0.03); Imm Gran Pct Auto 0.4 % (0.0-0.4); Lymphocytes Absolute Auto 1.7 X10*3/uL (1.2-4.9); Lymphocytes Percent Auto 32.9 % (20-40); Mean Corpuscular HGB Conc 33.9 g/dl (31.0-35.0); Mean Corpuscular Hemoglobin 30.5 pg (27.0-33.0); Mean Corpuscular Volume 90.1 fL (80.0-98.0); Mean Platelet Volume 9.8 fL (9.4-12.3); Monocytes Absolute Auto 0.4 X10*3/uL (0.1-1.2); Monocytes Percent Auto 7.4 % (2-11); Neutrophils Absolute Auto 2.4 x10*3/uL (2.0-8.3); Neutrophils Percent Auto 45.2 % (45-73); Platelet Count 231 X10*3/uL (160-400); Red Blood Count 4.23 X10*6/uL (4.20-5.50); Red Cell Distribution Width 12.3 % (11.0-16.0); White Blood Count 5.3 X10*3/uL (4.8-10.8)
[2024-08-21 09:30] LABS: Appearance Urine Cloudy; Color Urine Yellow; Glucose Urine UA Negative (Negative); Leukocyte Esterase Urine Negative (Negative); Nitrite Urine Negative (Negative); PH 7.5 (5.0-9.0); Urine Blood Negative (Negative); Urine Ketones Negative (Negative); Urine Protein Negative (Neg-Trace)
[2024-08-21 09:39] LABS: Alanine Aminotransferase 32 U/L (0-31); Albumin Level 4.4 g/dL (3.5-5.0); Alkaline Phosphatase 48 U/L (39-117); Anion Gap 8 (12-20); Aspartate Amino Transferase 30 U/L (5-31); Bilirubin Total 0.6 mg/dL (0.0-1.0); Blood Urea Nitrogen 13 mg/dL (9-16); Calcium 9.3 mg/dL (8.4-10.2); Carbon Dioxide 29 mmol/L (22-29); Chloride 106 mmol/L (96-108); Cholesterol 176 mg/dL (<200); Estimated Glomerular Filt Rate > 60; Glucose Fasting 96 mg/dL (60-99); HDL Cholesterol 70 mg/dL (>40); LDL Cholesterol Calculated 97 mg/dL (<100); Potassium 3.8 mmol/L (3.3-5.1); Sodium 139 mmol/L (135-145); Total Protein 7.1 g/dL (6.5-8.0); Triglycerides 49 mg/dL (<150)
[2024-08-21 10:03] LABS: Vitamin D 25-OH Total 37.3 ng/mL (>30)
== END 2024-08-21 08:32 | disposition home or self-care (01) ==
LOC: HO.LAB 08:31
PROVIDERS: PCP Internal Medicine; Visit Provider Internal Medicine
DX: Z00.00 Encounter for general adult medical examination without abnormal findings (principal); E78.00 Pure hypercholesterolemia, unspecified; D72.10 Eosinophilia, unspecified; R30.0 Dysuria; E55.9 Vitamin D deficiency, unspecified
CPT/HCPCS: 36415; 80053; 80061; 81003; 82306; 84443; 85025

== ENCOUNTER → 2024-09-05 13:01 | Outpatient (REF) | payer OTHER, SELFPAY ==
--- NOTE | 2024-09-05 13:09 | CA_ITS ---
Transthoracic Echocardiogram Patient (Last, First, Middle): Chandana Pelletier E Gender: Female Date of : 1990 Age: 33 Procedure Date: 09/05/2024 Procedure Type: Transthoracic Echocardiogram Location: OP Height: 162.56 cm Weight: 63.5 kg BSA: 1.68 m2 Heart Rate: bpm BP: 120 / 70 mmHg Complaint Adjuster: ESTELLA Referring MD: Deric Cui MD Ethnoarchaeologist: Saul Cox MD Symptoms: Z82.79 - Family history of other congenital malformations, deformations ... Study Quality: Fair, contrast ECG Rhythm: Sinus Conclusions: - Essentially normal study Findings Procedure Information Contrast agent, definity, is being given per protocol without apparent complications. Left Ventricle Normal left ventricular size, thickness, and systolic function. The visually estimated ejection fraction is between 60-65%. Spectral Doppler is indicative of a normal filling pattern. Right Ventricle The right ventricle was not well visualized. Normal right ventricular cavity size. Atria The left atrium is normal in size. Interatrial shunt cannot be excluded. The right atrium was not well visualized. Aortic Valve The aortic valve structure and function is likely normal. There is no aortic valve stenosis. There is no aortic valve regurgitation. Mitral Valve Likely normal mitral valve structure and function. There is no mitral valve regurgitation. There is no mitral valve stenosis. Pulmonic Valve The pulmonic valve was not well visualized. Tricuspid Valve Likely normal tricuspid valve structure and function. There is trace tricuspid valve regurgitation. The right ventricular systolic pressure is normal. The right ventricular systolic pressure is 27 mmHg. Normal right atrial pressure. There is no evidence of pulmonary hypertension. Great Vessels All visible segments of the aorta are normal in size. The pulmonary artery was not well visualized. There is no dilatation of the ascending aorta measuring 2.50 cm. Venous The inferior vena cava is normal in size and collapses greater than 50% with inspiration. Pericardium/Pleural The pericardium was not well visualized. Prior Study Comparison No prior study available for comparison. Measurements 2D Linear Measurements IVSd: 0.78 0.6-0.9/0.6-1.0 cm LVIDd: 4.16 3.9-5.3/4.2-5.9 cm LVIDd Index: 2.48 2.4-3.2/2.2-3.1 cm/m2 LVIDs: 3.14 2.0-3.6 cm LVPWd: 0.77 0.7-1.1 cm LA Diam: 2.80 2.7-3.8/3.0-4.0 cm LAIDs Index: 1.67 1.5-2.3 cm/m2 LV Mass: 118.64 67-162/88-224 g LV Mass Index: 70.62 43-95/49-115 g/m2 LVOT Diam: 2.00 3.0+(-)1.3 cm 2D Systolic Function EF 4C: 60.90 >55% EF 2C: 65.80 >55% EF BiP: 63.90 >55% Mitral Valve MV Pk E: 1.19 MV PK A: 0.57 MV Decel Time: 241.00 E/A: 2.10 E'Lateral: 17.30 E'Medial: 11.10 E/E' Med: 10.70 E/E' Lat: 6.90 PHT: 71.00 MVA PHT: 3.10 Decel [place]: 4.94 Aortic Valve AoV Pk Yovani: 1.10 AoV Mn Yovani: 0.83 AoV VTI: 0.28 AoV Pk Grad: 5.00 Aov Mn Grad: 3.00 MARCELA Cont.VTI: 2.27 LVOT LVOT Pk Yovani: 0.92 LVOT Mn Yovani: 0.62 LVOT VTI: 0.20 LVOT Pk Grad: 3.00 LVOT Mn Grad: 2.00 LVOT Diam: 2.00 LVOT Area: 3.14 Diastolic Function MV Pk E: 1.19 MV Pk A: 0.57 E/A: 2.10 E'Medial: 11.10 E/E' Med: 10.70 E' Laterial: 17.30 E/E' Lat: 6.90 Right Ventricle TAPSE (mm): 26.90 TVS' Yovani: 12.80 Tricuspid Valve TR Pk Yovani: 2.16 TR Pk Grad: 19.00 RA Press: 8.00 RVSP: 27.00 Great Vessels Aorta Sinus of Valsalva: 2.64 2.0-3.[address] [place]: 2.16 1.7-3.4 cm Ao Asc: 2.50 2.1-3.4 cm Updated in Other Vendor System with Status of Final Saul Cox MD electronically signed on 09/06/2024 12:54:14 PM with status of Final
== END ==
LOC: HO.CARD 13:01
PROVIDERS: PCP Internal Medicine; Visit Provider Internal Medicine
DX: R06.09 Other forms of dyspnea (principal); Z82.79 Family history of other congenital malformations, deformations and chromosomal abnormalities
CPT/HCPCS: 93306; Q9957

== ENCOUNTER → 2024-09-05 13:09 | Outpatient (BNV) | payer OTHER, SELFPAY | PROVIDERS: PCP Internal Medicine; Visit Provider Internal Medicine Cardiovascular Disease | DX: Z82.79 Family history of other congenital malformations, deformations and chromosomal abnormalities (principal) | CPT/HCPCS: 93306 ==

== ENCOUNTER 2025-06-11 15:46 | Outpatient (AMB) | payer OTHER, SELFPAY ==
[2025-06-11 15:53] VITALS: BP 116/78; PULSE 74; O2SAT 97; BMI 25.9
--- NOTE | 2025-06-11 15:53 | MHC.PC.OV ---
Vital Signs 06/11/25 15:53 Height 5 ft 3 in Weight 146 lb 2 oz BMI 25.9 BP 116/78 Blood Pressure Location Lt brachial Position Sitting Pulse 74 Pulse Source Pulse Oximeter Pulse Oximetry (%) 97 Oxygen Delivery Method Room Air Intake Visit Reasons: 6M follow up [employer] Required: No Accompanied by: Self / Same As Patient Allergies Seasonal Allergies Allergy (Verified 06/11/25 16:23) Runny Nose chlorhexidine Adverse Reaction (Intermediate, Verified 06/11/25 16:23) itchy rash Medication List - Last Reconciled 06/11/25 by Deric Cui MD lisinopril 5 mg PO DAILY 90 days metoprolol succinate ER 25 mg PO DAILY 90 days multivitamin (Daily Multi-Vitamin tablet) 1 tab PO DAILY Tobacco use date assessed: 06/11/25 Dental Screening Dental Screen Date: 06/11/25 Did you have a dental visit in the last 12 months?: Yes Did you have a dental problem in the last 6 months where you did not have access to dental care?: No Was dental information given to patient?: Patient has dentist HPI 6M follow up HPI Details Patient comes in today for her follow-up visit States that she feels okay She denies any headaches or dizziness Denies any chest pains, no shortness of breath No nausea/vomiting, no abdominal pain No change in bowel habits noted States that she will need both of her blood pressure medication Rx refilled She would also like to know how her labs and echocardiogram done late last year came out [facility] Medical History Overweight (BMI 25.0-29.9) Eosinophilia Benign essential hypertension History of pre-eclampsia Surgical History History of wisdom tooth extraction History of bunionectomy of both great toes Family History Mother High blood pressure Father High blood pressure Heart disease Mental health disorder Bipolar 1 disorder, depressed Social History Household Members: Spouse and Children Housing: House (rented) Alcohol intake: current Alcohol intake frequency: holidays/special occasions only Patient Tobacco Use Status: Never used Tobacco e-Cigarette/Vaping Use: Never Used Second Hand Smoke Exposure: Yes service: No Current occupational status: employed Current occupation: RN at [employer] Cognitive needs: No Hearing needs: No Vision needs: No Questionnaire PHQ-9 Over the last 2 weeks, how often have you been bothered by any of the following problems? 1. Little interest or pleasure in doing things: not at all 2. Feeling down, depressed, or hopeless: not at all 3. Trouble falling or staying asleep, or sleeping too much: not at all 4. Feeling tired or having little energy: not at all 5. Poor appetite or overeating: not at all 6. Feeling bad about yourself - or that you are a failure or have let yourself or your family down: not at all 7. Trouble concentrating on things, such as reading the newspaper or watching television: not at all 8. Moving or speaking so slowly that other people could have noticed. Or the opposite - being so fidgety or restless that you have been moving around a lot more than usual: not at all 9. Thoughts that you would be better off or of hurting yourself in some way: not at all Total score: 0 Depression Screening Interpretation: Negative Depression Screening Done: Yes 65004 - PHQ-9 Billing: Yes Source: Developed by Drs. Edinson Mcclure, Shakira Monroe, Boby Subramanian and colleagues, with an educational frida from [employer]. Thrive Questionnaire Date Thrive assessed: 06/11/25 I am a: Patient What is your living situation today?: I have a steady place to live Within the past 12 months, did the food you bought not last and you didn't have the money to get more?: Never true Within the past 12 months, did you worry whether your food would run out before you got money to buy more?: Never true Do you have trouble paying for medicines?: No Do you have trouble getting transportation to medical appointments?: No Do you have trouble paying your heating and electricity bill?: No Do you have trouble taking care of your child, family member or friend?: No Do you have trouble with day-to-day activities such as bathing, preparing meals, shopping, managing finances, etc.?: No Are you currently unemployed and looking for a job?: No Are you interested in more education?: No Please select the resources that you would like help with: None Currently or been in a relationship where the following occur: No concerns reported THRIVE Score: 0 AUDIT C Alcohol Use Questionnaire (AUDIT-C) 1. How often do you have a drink containing alcohol?: Monthly or less 2. How many drinks containing alcohol do you have on a typical day when you are drinking?: 1 or 2 3. How often do you have six or more drinks on one occasion?: Never Total Score: 1 Score Reviewed/Action Taken: Yes GWENDOLYN-7 AMB Questionnaire GWENDOLYN-7 Date GWENDOLYN - 7 assessed: 06/11/25 Feeling nervous, anxious, or on edge: 0 = Not at all Not being able to stop or control worryin = Not at all Worrying too much about different things: 0 = Not at all Trouble relaxin = Not at all Being so restless that it is hard to sit still: 0 = Not at all Becoming easily annoyed or irritable: 0 = Not at all Feeling afraid as if something awful might happen: 0 = Not at all Total GWENDOLYN-7 score (0-4 normal; 5-9 mild; 10-14 moderate; 15-21 severe): 0 Source: Developed by Drs. Edinson Mcclure, Shakira Monroe, Boby Subramanian and colleagues, with an educational frida from [employer]. Review of Systems Const Denies chills, Denies fatigue, Denies fever(s) and Denies headache(s) ENT Denies dysphagia, Denies dizziness, Denies otalgia, Denies headache(s), Denies neck pain, Denies odynophagia and Denies sore throat Card Denies chest pain, Denies rapid heart rate, Denies palpitations and Denies dyspnea Resp Denies chest congestion, Denies cough and Denies dyspnea GI Denies abdominal pain, Denies constipation, Denies dysphagia, Denies heartburn, Denies diarrhea, Denies nausea, Denies odynophagia and Denies vomiting Denies urinary frequency, Denies dysuria and Denies urinary urgency Musc Denies back pain, Denies arthralgias and Denies neck pain Skin/Breast Denies rash Neuro Denies dizziness, Denies headache(s) and Denies paresthesias Psych Denies anxiety and Denies depression Endo Denies fatigue and Denies palpitations Nickolas/Lymph Denies easy bruising Physical exam (Primary Care) Vital Signs: Last Vital Signs Pulse 74 06/11/25 15:53 BP 116/78 06/11/25 15:53 Pulse Ox 97 06/11/25 15:53 Oxygen Delivery Method Room Air 06/11/25 15:53 BMI result Body Mass Index 25.9 Tobacco/Smoking Status: Tobacco use Status Tobacco use date assessed 06/11/25 06/11/25 16:00 Patient Tobacco Use Status Never used Tobacco 06/11/25 16:00 e-Cigarette/Vaping Use Never Used 06/11/25 16:00 PHQ-9: PHQ-9 Score PHQ-9: Total score 0 06/11/25 16:25 Depression Screening Interpretation: Negative Thrive Assessment: Date of Thrive Assessment Date Thrive assessed 06/11/25 06/11/25 16:00 Currently or been in a relationship where the following occur: No concerns reported Const General: no acute distress and alert HENMT Ears: TM's normal bilaterally and EAC's normal Throat: Yes posterior oropharynx normal and Yes tonsils normal (no TP congestion) Neck Neck: Yes supple and No lymphadenopathy Thyroid: Thyroid normal Resp Auscultation: clear to auscultation bilaterally, no rales and no wheezes Cardio Rate: regular rate Rhythm: regular rhythm Heart sounds: no murmurs GI Palpation (GI): Soft to palpation and nontender Auscultation: normal bowel sounds General: Yes no CVA tenderness Back/Spine/Pelvis Back: no CVA tenderness Thoracic/Lumbar Spine: No lumbar spinal tenderness Skin Rashes: no rashes Extrem General: Yes no clubbing, cyanosis or edema Results Reviewed Results Reviewed: Laboratory Tests 08/21/24 08:45 WBC 5.3 Hgb 12.9 Hct 38.1 Plt Count 231 Sodium 139 Potassium 3.8 Creatinine 0.77 Estimated GFR > 60 Fasting Glucose 96 Calcium 9.3 AST 30 ALT 32 H Alkaline Phosphatase 48 Triglycerides 49 Cholesterol 176 LDL Cholesterol, Calc 97 HDL Cholesterol 70 25-OH Vitamin D Total 37.3 TSH 1.10 Ur Specific [place] 1.020 Urine Protein Negative Urine Glucose (UA) Negative Urine Blood Negative Urine Nitrite Negative Ur Leukocyte Esterase Negative Coding Level of Care Code Est Pt Level 4 (03807) Diagnoses Benign essential hypertension I10 Elevated LFTs R79.89 Eosinophilia, unspecified type D72.10 Eosinophilia type: unspecified eosinophilia Asymptomatic varicose veins of both lower extremities I83.93 Varicose vein complication: asymptomatic Laterality: bilateral Family history of bicuspid aortic valve Z82.79 Overweight (BMI 25.0-29.9) E66.3 Additional Codes PHQ-9 - 02864 - PHQ-9 Billing: Yes ([id number]) Assessment & Plan Assessment & Plan (1) Benign essential hypertension: Code(s): I10 - Essential (primary) hypertension Category: Medical Plan: Reinforced low sodium diet - goal is systolic BP of 120 to 130 mm or less Her BP is currently still well-controlled Continue Metoprolol ER 25 mg QD and Lisinopril 5 mg QD - Rx refilled (2) Elevated LFTs: Code(s): R79.89 - Other specified abnormal findings of blood chemistry Category: Medical Plan: Her LFTs were elevated on her labs done back in February 2023 but they were back to normal on her repeat labs in May 2023 Her serum AST remain normal but her ALT is again slightly elevated on her labs done back in July 2024 This is most likely related to her weight - patient denies any acute abdominal pain or symptoms and states that she drinks alcohol only occasionally / rarely and does not take any excessive amounts of Tylenol Rx Will continue to monitor her LFTs regularly (3) Eosinophilia: Code(s): D72.10 - Eosinophilia, unspecified Category: Medical Qualifiers: Eosinophilia type: unspecified eosinophilia Qualified Code(s): D72.10 - Eosinophilia, unspecified Plan: She was referred to and seen by hematology for further evaluation - work ups done were all negative She was advised that this is likely allergy-mediated, is a benign condition and she just needs to follow up with hematology on an as-needed basis (4) Varicose vein of leg: Code(s): I83.90 - Asymptomatic varicose veins of unspecified lower extremity Category: Medical Qualifiers: Varicose vein complication: asymptomatic Laterality: bilateral Qualified Code(s): I83.93 - Asymptomatic varicose veins of bilateral lower extremities Plan: She is now seeing vascular surgery in [place] She was reportedly advised at her last visit that as she currently does not appear to have any significant symptoms related to her varicose veins, insurance will NOT cover cosmetic procedures so surgery would not be an option for her at this time (5) Family history of bicuspid aortic valve: Code(s): Z82.79 - Family history of other congenital malformations, deformations and chromosomal abnormalities Category: Medical Plan: Patient's son was recently noted to have a cardiac murmur and was diagnosed with a bicuspid aortic valve and she was supposedly advised by her son's vocational rehabilitation teacher that she should request for an echocardiogram for further evaluation Her echocardiogram done back in August 2024 came back normal - her aortic valve is normal (6) Overweight (BMI 25.0-29.9): Code(s): E66.3 - Overweight Category: Medical Plan: Reinforced diet/exercise as tolerated/lose weight Plan To return in 6 months for her next annual physical examination Orders: Orders Comprehensive [place]. Panel Fast 6 Months E78.00 - Pure hypercholesterolemia, unspecified, Z00.00 - Encounter for general adult medical examination without abnormal findings Lipid Panel 6 Months E78.00 - Pure hypercholesterolemia, unspecified, Z00.00 - Encounter for general adult medical examination without abnormal findings UA CC w/rflx Micro + Cult 6 Months R30.0 - Dysuria, Z00.00 - Encounter for general adult medical examination without abnormal findings Vitamin D 25-OH Total 6 Months E55.9 - Vitamin D deficiency, unspecified, Z00.00 - Encounter for general adult medical examination without abnormal findings Complete Blood Count Auto Diff 6 Months D64.9 - Anemia, unspecified, Z00.00 - Encounter for general adult medical examination without abnormal findings TSH reflex Free T4 6 Months E78.00 - Pure hypercholesterolemia, unspecified, Z00.00 - Encounter for general adult medical examination without abnormal findings Medications: Refilled metoprolol succinate ER 25 mg PO DAILY 90 tabs 3RF 90 days I10 - Essential (primary) hypertension lisinopril 5 mg PO DAILY 90 tabs 3RF 90 days
== END 2025-06-11 16:33 | disposition home or self-care (01) ==
LOC: HO.HMCH 15:47
PROVIDERS: PCP Internal Medicine; Visit Provider Internal Medicine
DX: I10 Essential (primary) hypertension (principal); R79.89 Other specified abnormal findings of blood chemistry; D72.10 Eosinophilia, unspecified; I83.93 Asymptomatic varicose veins of bilateral lower extremities; Z82.79 Family history of other congenital malformations, deformations and chromosomal abnormalities; E66.3 Overweight

== ENCOUNTER → 2025-06-11 15:46 | Outpatient (BNVA) | payer OTHER, SELFPAY | PROVIDERS: PCP Internal Medicine; Visit Provider Internal Medicine | DX: I10 Essential (primary) hypertension (principal); R79.89 Other specified abnormal findings of blood chemistry; D72.10 Eosinophilia, unspecified; I83.93 Asymptomatic varicose veins of bilateral lower extremities; E66.3 Overweight; Z68.25 Body mass index [BMI] 25.0-25.9, adult; Z82.79 Family history of other congenital malformations, deformations and chromosomal abnormalities | CPT/HCPCS: 96127 ==